=== PATIENT | female | born 1965 | race Caucasian/White ===

== ENCOUNTER → 2022-03-13 15:14 | Outpatient (BNVA) | payer BC, SELFPAY | PROVIDERS: PCP Family Medicine; Visit Provider Family Medicine | DX: I49.8 Other specified cardiac arrhythmias (principal); E88.01 Alpha-1-antitrypsin deficiency; Z13.1 Encounter for screening for diabetes mellitus; M25.512 Pain in left shoulder; Z13.6 Encounter for screening for cardiovascular disorders; M79.89 Other specified soft tissue disorders; M25.511 Pain in right shoulder; F43.9 Reaction to severe stress, unspecified; G89.29 Other chronic pain; Z76.89 Persons encountering health services in other specified circumstances | CPT/HCPCS: 80053; 80061; 83735; 83880; 84443; 85025 ==

== ENCOUNTER → 2022-03-14 10:20 | Outpatient (BNVA) | payer BC, SELFPAY | PROVIDERS: PCP Family Medicine; Visit Provider Internal Medicine Pulmonary Disease | DX: R06.09 Other forms of dyspnea (principal); E88.01 Alpha-1-antitrypsin deficiency; Z87.891 Personal history of nicotine dependence; M25.641 Stiffness of right hand, not elsewhere classified; Z12.2 Encounter for screening for malignant neoplasm of respiratory organs; M25.512 Pain in left shoulder; M25.642 Stiffness of left hand, not elsewhere classified; M25.511 Pain in right shoulder | CPT/HCPCS: 71046; 73030 ==

== ENCOUNTER 2022-04-05 10:14 | Outpatient (CLI) | payer BC, SELFPAY ==
--- NOTE | 2022-04-05 10:30 | CT_ITS ---
WS: [id number] LDCT LUNG CANCER SCREENING TECHNIQUE: Noncontrast CT of the chest with coronal and sagittal reformatted images. CLINICAL INFORMATION: lung screening COMPARISON: None. DLP: 78.57 mGy.cm DIvol: Mean CTDIvol: 1.60 (mGy) All CT scans at [facility] use at least one of these dose optimization techniques: automat ed exposure control; mA and/or kV adjustment per patient size (includes targeted exams where dose is matched to clinical indication); or iterative reconstruction. FINDINGS: 10-11 millimeter noncalcified subpleural nodule RIGHT lower lobe has a suspicious appearanc e. Recommend further evaluation with PET/CT. 5 mm subpleural nodule RIGHT upper lobe anterior and medially with a small amount of central calcific ation. Additional incidental calcified granulomas bilaterally. Normal caliber thoracic aorta. Aortic calcification. No mediastinal or hilar lymphadenopathy. No axil pura lymphadenopathy. Adrenal glands are normal. Cholecystectomy clips. Small esophageal hiatal hernia. CT/CT lung screening 85540 IMPRESSION:10-11 millimeter noncalcified subpleural nodule RIGHT lower lobe has a suspicious appearance. Recommend further evaluation with PET/CT LUNG-RADS: 4B-Suspicious FOLLOW UP: PET/CT recommended
== END 2022-04-05 10:15 | disposition home or self-care (01) ==
PROVIDERS: PCP Family Medicine; Visit Provider Internal Medicine Pulmonary Disease
DX: Z12.2 Encounter for screening for malignant neoplasm of respiratory organs (principal); Z87.891 Personal history of nicotine dependence; R91.1 Solitary pulmonary nodule
CPT/HCPCS: 71271

== ENCOUNTER → 2022-05-11 16:34 | Outpatient (BNVA) | payer BC, SELFPAY | PROVIDERS: PCP Family Medicine; Visit Provider Internal Medicine Pulmonary Disease | DX: M62.81 Muscle weakness (generalized) (principal); M25.642 Stiffness of left hand, not elsewhere classified; M25.641 Stiffness of right hand, not elsewhere classified | CPT/HCPCS: 82085; 82550; 85651; 86038; 86140; 86200; 86431 ==

== ENCOUNTER 2022-06-27 09:32 | Day surgery (SDC) | payer BC, SELFPAY ==
[2022-06-25 13:06] VITALS: BMI 30.7
[2022-06-27 10:09] VITALS: BP 123/87; PULSE 93; RESP 16; TEMP 36.3; O2SAT 100
[2022-06-27] MEDS: sodium chloride 0.9% 1,000 ML 30 ML IV (10:14)
--- NOTE | 2022-06-27 10:43 | ANES.PREANE2 ---
Pre-Anesthetic Assessment Height/Weight: Height 1.68 m Weight 86.183 kg Temp Pulse Resp BP Pulse Ox O2 Del Method 97.4 F L 93 16 123/87 100 Room Air 06/27/22 10:09 06/27/22 10:09 06/27/22 10:09 06/27/22 10:09 06/27/22 10:09 06/27/22 10:09 Preop Diagnosis: GERD Operation Date: 06/27/22 11:15 Proposed Procedures p 87922 EGD K21.9(Not Applicable) - Raghav Granger DO Familial anesthetic complications: none Last intake: Intake Last Liquid Date 06/26/22 Last Liquid Time 21:00 Last Solid Date 06/25/22 Last Solid Time 19:30 Social No alcohol and No tobacco Exam alert, oriented x 3, clear to auscultation bilaterally and regular rate & rhythm Airway Submandibular: within normal limits Cervical ROM: within normal limits Mallampati: Class II Dentition: partials and other (bridge) Pulmonary Shortness of Breath pulmonary nodule pet scan 07/06 to examine further. alpha 1 antitrypsin deficiency CV/HEM Hypertension and Palpitations None reported Hepatic None reported GI Gastroesophageal Reflux Disease Metabolic None reported Musc/skel Osteoarthritis/DJD Neuropsych Anxiety Anesthetic Plan ASA status: 3 Anesthesia: MAC Medications/Allergies Home Medications Medication Instructions Recorded Confirmed Last Taken Type aspirin 81 mg chewable tablet 81 mg PO DAILY 03/13/22 06/27/22 06/25/22 History tiotropium bromide 18 mcg capsule 1 cap inhalation DAILY #30 03/14/22 06/27/22 06/26/22 Rx with inhalation device (Spiriva inhalations with HandiHaler) hydrocodone 5 mg-acetaminophen 325 1 tab PO Q4H PRN pain 5 days #20 04/30/22 06/27/22 Unknown Rx mg tablet tabs metoprolol tartrate 25 mg tablet 25 mg PO BID 90 days #180 tabs 05/08/22 06/27/22 06/26/22 Rx pantoprazole 40 mg tablet,delayed 40 mg PO BID 6 weeks #84 tabs 06/05/22 06/27/22 06/26/22 Rx release (Protonix) pantoprazole 40 mg tablet,delayed 40 mg PO BID 06/25/22 06/27/22 06/26/22 History release (Protonix) Allergies Allergy/AdvReac Type Severity Reaction Status Date / Time codeine Allergy Intermediate n/v Verified 06/27/22 10:07 Current Medications Generic Name Dose Route Start Last Admin Trade Name Love PRN Reason Stop Dose Admin Sodium Chloride 1,000 mls @ 30 mls/hr 06/27/22 10:00 06/27/22 10:14 Sodium Chloride 0.9% IV 06/28/22 09:59 30 mls/hr .Q24H HUEY Administration PFSH Anesthesia Surgical History History of appendectomy History of cholecystectomy Family History Father Clotting disorder had blood clots, heart disease and strokes. Cancer brain tumor Diabetes Stroke Grandmother Dementia maternal Other Family history of premature coronary artery disease Denies family history of Chronic kidney disease (CKD) Bleeding disorder Thyroid disease Social History Smoking and tobacco status: former smoker Quit status (tobacco): has quit using tobacco Female Reproductive History Para: 2 Date of menopause: 03/11/13 Data Anesthesia Cardiac Studies: No Data to Display
--- NOTE | 2022-06-27 11:50 | W.PM.OPSUD ---
Surgery/Procedure H&P Update DATE OF PROCEDURE: June 27, 2022 DATE H&P PERFORMED: 06/05/22 H&P UPDATE INFORMATION: I have reviewed H&P completed within last 30 days, I have examined patient prior to procedure and No changes to prior documentation PREOP DIAGNOSIS: GERD PLANNED PROCEDURE: Operation Date: 06/27/22 11:15 Proposed Procedures p [id number] EGD K21.9(Not Applicable) - Raghav Granger, DO
[2022-06-27 12:11] VITALS: BP 117/82; PULSE 92; RESP 16; TEMP 36.5; O2SAT 98
[2022-06-27 12:20] VITALS: BP 114/85; PULSE 82; RESP 18; O2SAT 99
--- NOTE | 2022-06-27 15:04 | ANE.PACU2 ---
Inpatient post-anesthesia follow up: Airway intact: Yes Vital signs: Temperature 97.7 F Pulse Rate 82 Respiratory Rate 18 Blood Pressure 114/85 Pulse Oximetry 99 Oxygen Delivery Me thod Room Air Oxygen Flow Rate Fraction of Inspir ed Oxygen Hydration adequate: Yes Nausea and vomiting: No Pain level: 2 Mental status: Baseline
== END 2022-06-27 12:47 | disposition home or self-care (01) ==
PROVIDERS: PCP Family Medicine; Visit Provider Surgery
PROC: 0DJ08ZZ Inspection of Upper Intestinal Tract, Via Natural or Artificial Opening Endoscopic (ICD-10-PCS; CPT 43235; principal; 2022-06-27 11:15)
DX: K21.9 Gastro-esophageal reflux disease without esophagitis (principal); K29.50 Unspecified chronic gastritis without bleeding; R91.1 Solitary pulmonary nodule; I10 Essential (primary) hypertension; R00.2 Palpitations; Z79.82 Long term (current) use of aspirin; Z79.891 Long term (current) use of opiate analgesic; Z87.891 Personal history of nicotine dependence
CPT/HCPCS: 43239; 88305; 88342; J2704; J7030

== ENCOUNTER 2022-07-31 07:03 | Outpatient (CLI) | payer BC, SELFPAY | END 2022-07-31 07:04 | disposition home or self-care (01) | LOC: RT 07:05 | PROVIDERS: PCP Family Medicine; Visit Provider Family Medicine | DX: R06.09 Other forms of dyspnea (principal); Z87.891 Personal history of nicotine dependence | CPT/HCPCS: 94010; 94729 ==

== ENCOUNTER → 2022-11-12 10:00 | Outpatient (BNVA) | payer OTHER, SELFPAY | PROVIDERS: PCP Family Medicine; Referring Provider Internal Medicine Pulmonary Disease; Visit Provider Internal Medicine Rheumatology | DX: M19.90 Unspecified osteoarthritis, unspecified site (principal); Z79.899 Other long term (current) drug therapy; E88.01 Alpha-1-antitrypsin deficiency; M25.551 Pain in right hip; M25.552 Pain in left hip | CPT/HCPCS: 36415; 73130; 80076; 82306; 82565; 85025; 85651; 86140 ==

== ENCOUNTER → 2023-02-18 10:03 | Outpatient (BNVA) | payer OTHER, SELFPAY | PROVIDERS: PCP Family Medicine; Visit Provider Nurse Practitioner Family | DX: J02.9 Acute pharyngitis, unspecified (principal); Z20.818 Contact with and (suspected) exposure to other bacterial communicable diseases | CPT/HCPCS: 87880 ==

== ENCOUNTER → 2023-04-12 11:52 | Outpatient (BNVA) | payer OTHER, SELFPAY | PROVIDERS: PCP Family Medicine; Visit Provider Emergency Medicine | DX: R68.89 Other general symptoms and signs (principal); J02.9 Acute pharyngitis, unspecified; B34.9 Viral infection, unspecified | CPT/HCPCS: 87071; 87400; 87880 ==

== ENCOUNTER → 2023-07-02 16:14 | Outpatient (BNVA) | payer OTHER, SELFPAY | PROVIDERS: PCP Family Medicine; Visit Provider Nurse Practitioner Family | DX: R30.0 Dysuria (principal) | CPT/HCPCS: 81000; 87086 ==